=== PATIENT | male | born 1985 | race American Indian/Alaskan Native ===

== ENCOUNTER 2017-11-19 15:55 | Emergency (ER) | payer SELFPAY ==
[2017-11-19 16:16] VITALS: RESP 16
--- NOTE | 2017-11-19 16:35 | C.PDOC ---
History Of Present Illness 32 year old male presents to the ER with a complaint of right lower dental pain for the past 3 days. Patient states he initially chipped a tooth 2 weeks ago and saw the dentist for the same and "they put stuff on it", but is pending insurance card before they can have full treatment. Patient reports he has been having increased pain to his tooth now with local swelling. He is unable to chew on tooth. Patient has not used any medications for pain or antibiotics. R LOWER DENTAL PAIN X 3 DAYS. PS INITIALLY CHIPPED TOOTH 2 WKS AGO, SAW DENTIST FOR SAME, "THEY PUT STUFF ON IT" BUT IS PENDING INSURANCE CARD BEFORE CAN HAVE FULL TREATMENT. PS INCR PAIN TO TOOTH, NOW W LOCAL SWELLING. UNABLE TO CHEW ON TOOTH. NO PRIOR PAIN MEDS, ABX. EXAM MILD DIST NONTOXIC HEENT + CHIPPED TOOTH R LOWER 1 MOLAR W MILD LOCAL GUM SWELLING. +FOCAL DENTALGIA. NO ABSCESS. MILD R LOWER FACIAL SWELL REMAINDER NEG MDM ABX, FU DENTAL Time Seen by Provider: 11/19/17 16:12 History Per: Patient History/Exam Limitations: no limitations Onset/Duration Of Symptoms: Days Current Symptoms Are (Timing): Still Present Recent travel outside of the [place]: No Past Medical History Reviewed: Historical Data, Nursing Documentation, Vital Signs Vital Signs: Last Vital Signs Temp 98 F 11/19/17 17:00 Pulse 77 11/19/17 17:00 Resp 16 11/19/17 17:03 BP 142/60 11/19/17 17:00 Pulse Ox 99 11/19/17 17:22 Surgical History: No Surg Hx Family History: States: Unknown Family Hx - Social History Hx Alcohol Use: Yes Hx Substance Use: No - Immunization History Hx Tetanus Toxoid Vaccination: No Hx Influenza Vaccination: No Hx Pneumococcal Vaccination: No Review Of Systems Except As Marked, All Systems Reviewed And Found Negative. Constitutional: Negative for: Fever, Chills ENT: Positive for: Mouth Pain. Negative for: Mouth Swelling, Throat Pain Physical Exam - Physical Exam Appears: Non-toxic, Other (Mild distress) Skin: Normal Color, Warm, Dry Head: Atraumatic, Normacephalic, Other (Mild right lower focal swelling) Eye(s): bilateral: Normal Inspection Ear(s): Bilateral: Normal Nose: Normal Oral Mucosa: Moist Teeth: Other (+ chipped tooth right 1st molar with mild local gum swelling, no abscess. + focal dentalgia.) Throat: Normal, No Erythema Neck: Normal, Supple Neurological/Psych: Oriented x3, Normal Speech ED Course And Treatment O2 Sat by Pulse Oximetry: 99 (Room air) Pulse Ox Interpretation: Normal Medical Decision Making Medical Decision Making: ABX, FU DENTAL Disposition Counseled Patient/Family Regarding: Diagnosis, Need For Followup, Rx Given - Disposition Referrals: YOUR,DENTIST [Other] Disposition: HOME/ ROUTINE Disposition Time: 16:35 Condition: IMPROVED Prescriptions: Acetaminophen/Cod NO 4 [Tylenol/Cod 300 mg-60 mg] 1 tab PO Q4 PRN #20 tab PRN Reason: Pain, Moderate (4-7) Amoxicillin [Amoxil 500 mg Cap] 500 mg PO BID #14 cap Ibuprofen [Motrin] 600 mg PO Q6 #30 tab Instructions: Fractured Tooth (DC), Dental Pain (DC) Forms: Work Excuse - Clinical Impression Clinical 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 - Scribe Statement The provider has reviewed the documentation as recorded by the Scribmitesh Pérez All medical record entries made by the Hiibmitesh were at my direction and personally dictated by me. I have reviewed the chart and agree that the record accurately reflects my personal performance of the history, physical exam, medical decision making, and the department course for this patient. I have also personally directed, reviewed, and agree with the discharge instructions and disposition.
[2017-11-19] MEDS ORDERED: Acetaminophen-Codeine 300/30 mg Tab PO STA (16:37)
[2017-11-19] MEDS ORDERED: Acetaminophen-Codeine 300/30 mg Tab PO ONE (16:44)
[2017-11-19 17:01] VITALS: BP 142/60; PULSE 77; TEMP 98
[2017-11-19 17:16] VITALS: O2SAT 99
== END 2017-11-19 17:03 | disposition home or self-care (01) ==
LOC: C.ER 15:55
DX: K08.89 Other specified disorders of teeth and supporting structures (principal); F17.210 Nicotine dependence, cigarettes, uncomplicated

== ENCOUNTER 2018-04-09 10:40 | Emergency (ER) | payer SELFPAY ==
[2018-04-09 10:50] VITALS: BP 146/94; PULSE 63; RESP 20; TEMP 99.1; O2SAT 99
[2018-04-09] MEDS ORDERED: Oxycodone/Acetaminophen 5/325 mg Tab PO STA (11:40)
--- NOTE | 2018-04-09 11:42 | C.PDOC ---
History Of Present Illness 33 year old male present to the ED complaining of dental pain since last night. Reports he has caries. Denies any fever, chills, difficulty breathing, or any other complaints. Patient sts he was taking Tylenol and Ibuprofen with no help. Time Seen by Provider: 04/09/18 11:08 Chief Complaint (Nursing): Dental Pain History Per: Patient History/Exam Limitations: no limitations Onset/Duration Of Symptoms: Hrs Current Symptoms Are (Timing): Still Present Severity: Moderate Quality: Positive for: "Pain" Past Medical History Reviewed: Historical Data, Nursing Documentation, Vital Signs Vital Signs: Last Vital Signs Temp 99.1 F 04/09/18 10:48 Pulse 63 04/09/18 10:48 Resp 20 04/09/18 10:48 BP 146/94 H 04/09/18 10:48 Pulse Ox 99 04/09/18 10:48 - Medical History PMH: No Chronic Diseases Surgical History: No Surg Hx Family History: States: No Known Family Hx - Social History Hx Alcohol Use: Yes Hx Substance Use: No - Immunization History Hx Tetanus Toxoid Vaccination: No Hx Influenza Vaccination: No Hx Pneumococcal Vaccination: No Review Of Systems Except As Marked, All Systems Reviewed And Found Negative. Constitutional: Negative for: Fever, Chills ENT: Positive for: Mouth Pain Respiratory: Negative for: Shortness of Breath Physical Exam - Physical Exam Appears: Non-toxic, No Acute Distress Skin: Warm, Dry Head: Normacephalic Eye(s): bilateral: Normal Inspection Ear(s): Bilateral: Normal Nose: Normal Oral Mucosa: Moist Tongue: Normal Appearing Lips: Normal Appearing Teeth: Caries (right lower first molar ) Gingiva: No Erythema, No Swelling Neck: Supple Chest: Symmetrical Neurological/Psych: Oriented x3, Normal Speech Gait: Steady ED Course And Treatment O2 Sat by Pulse Oximetry: 99 (RA) Pulse Ox Interpretation: Normal Progress Note: Patient treated with Penicillin VK and Percocet. Instructed to follow up with Dentist. Disposition - [facility]position [facility] [Outside] Disposition: HOME/ ROUTINE Disposition Time: 11:41 Condition: STABLE Additional Instructions: Follow up with dentist within 1-2 days. Return to ED if feel worse. 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 - Scribe Statement The provider has reviewed the documentation as recorded by the Scribe Avril Chapa All medical record entries made by the Scribe were at my direction and personally dictated by me. I have reviewed the chart and agree that the record accurately reflects my personal performance of the history, physical exam, medic al decision making, and the department course for this patient. I have also personally directed, reviewed, and agree with the discharge instructions and disposition.
[2018-04-09] MEDS ORDERED: Oxycodone/Acetaminophen 5/325 mg Tab ONE (11:53)
== END 2018-04-09 11:54 | disposition home or self-care (01) ==
LOC: C.ER 10:40
DX: K02.9 Dental caries, unspecified (principal)